=== PATIENT | female | born 1950 | race Caucasian/White ===

== ENCOUNTER 2016-11-25 10:13 | Emergency (ER) | payer OTHER ==
[~2016-11-25] VITALS: Ht 157.5 cm; Wt 81.6 kg
--- NOTE | 2016-11-25 10:16 | NUR ---
PT BIB [facility] S/P GLF C/O RIB/BREAST PAIN, L SHOULDER, AND L ARM PAIN 5/10. NO VISIBLE DEFORMITIES. DISTAL CMS INTACT. RESP EVEN UNLABORED. SKIN WARM NONDIAPHORETIC. NAD NOTED. IN ER BED 05.
--- NOTE | 2016-11-25 11:05 | NUR ---
[facility], SPOKE WITH CRISTY, GAVE HIM PT INFO; INFORMED ME IF PT NEEDS TO BE TRANSFERRED TO GIVE HIM A CALL BACK
--- NOTE | 2016-11-25 12:09 | NUR ---
PT TRANSPORTED TO CT IN STABLE CONDITION
--- NOTE | 2016-11-25 13:41 | NUR ---
Rayshawn isaacs in [id number] - 11/25/16 at 1343 by [facility] CALLED [employer] FOR TELE BED
--- NOTE | 2016-11-25 13:43 | NUR ---
RESTING QUIETLY, NAD NOTED. MD AT BEDSIDE FOR UPDATE. PER MD, PLACE PT ON HEAD PACKAGER AND 2L VIA NC FOR SUPPORT.
--- NOTE | 2016-11-25 13:51 | NUR ---
CALLED [facility], AWAITING CALL BACK FROM [facility]
[2016-11-25 13:56] LABS: BASOPHILS # (AUTO) 0.5 /CMM (0.0-0.2); BASOPHILS % (AUTO) 2.2 % (0.0-2.0); EOSINOPHILS % (AUTO) 0.1 % (0.0-6.0); HEMATOCRIT 39 % (33-45); HEMOGLOBIN 12.7 g/dL (11.5-14.8); LYMPHOCYTES # (AUTO) 0.9 /CMM (0.8-4.8); LYMPHOCYTES % (AUTO) 4.3 % (20.0-44.0); MEAN CORPUSCULAR HEMOGLOBIN 27 PG (26.0-33.0); MEAN CORPUSCULAR HGB CONC 33 g/dl (31.0-36.0); MEAN CORPUSCULAR VOLUME 82 fL (82-100); MONOCYTES # (AUTO) 1.1 /CMM (0.1-1.30); MONOCYTES % (AUTO) 5.1 % (2.0-12.0); NEUTROPHILS # (AUTO) 18.1 /CMM (1.8-8.9); NEUTROPHILS % (AUTO) 88.3 % (43.0-81.0); PLATELET COUNT (AUTO) 247 /CMM (150-450); RDW COEFFICIENT OF VARIATION 14.5 (11.5-15.0); RED BLOOD CELL COUNT(AUTO) 4.76 MIL/uL (4.0-5.2); WHITE BLOOD COUNT (AUTO) 20.6 K/uL (4.3-11.0)
[2016-11-25 14:10] LABS: CALCIUM, SERUM 9.2 mg/dL (8.5-10.1); CARBON DIOXIDE 25 mmol/L (21-32); CHLORIDE 104 mmol/L (98-107); CREATININE 1.1 mg/dL (0.6-1.3); GLUCOSE 152 mg/dL (74-106); POTASSIUM 4.7 mmol/L (3.5-5.1); SODIUM SERUM 139 mmol/L (136-145); UREA NITROGEN, BLOOD 27 mg/dL (7-18)
[2016-11-25 14:13] LABS: INR 0.98 (0.87-1.13); PROTHROMBIN TIME 10.2 SECS (9.5-12.7)
[2016-11-25 14:15] LABS: ALANINE AMINOTRANSFERASE 28 U/L (12-78); ALBUMIN 3.7 g/dL (3.4-5.0); ALKALINE PHOSPHATASE 92 U/L (46-116); ASPARTATE AMINOTRANSFERASE 37 U/L (15-37); BILIRUBIN,TOTAL 0.4 mg/dL (0.2-1.0); TOTAL PROTEIN, SERUM 7.7 g/dL (6.4-8.2)
[2016-11-25 14:17] LABS: TROPONIN I < 0.017 ng/mL (0.00-0.056)
--- NOTE | 2016-11-25 14:21 | NUR ---
REPORTS ADEQUATE PAIN RELIEF WITH MEDICATION ORDERED
[2016-11-25 15:19] LABS: BAND % (MANUAL) 2 % (0.0-5.0); LYMPHOCYTES % (MANUAL) 2 % (16-48); MONOCYTES % (MANUAL) 2 % (0-11.0); NEUTROPHILS % (MANUAL) 94 (42-76)
--- NOTE | 2016-11-25 16:07 | NUR ---
PT REPORTS NEEDING TO GO TO THE BATHROOM. OFFERED BEDSIDE COMMODE AND BEDPAN. PT REFUSES TO LIE DOWN FLAT SO HER SHORTS CAN BE REMOVED AND DOES NOT CONSENT TO CUTTING OFF HER SHORTS. PT STATES "I'LL JUST PEE IN MY PANTS. I CAN'T GET ON THE BEDPAN".
--- NOTE | 2016-11-25 16:34 | NUR ---
PT ACCEPTED TO [facility] ER BY DR. RUFFIN, NUMBER FOR REPORT IS [phone], [facility] SHOULD ARRIVE WITHIN THE HOUR
[2016-11-25 16:57] VITALS: BP 111/77
--- NOTE | 2016-11-25 17:11 | NUR ---
[facility] ER REPORT GIVEN TO ER SOCIAL MEDIA DESIGNER TELMA, DEFENSIVE LINE COACH TIME W/IN AN HR.
--- NOTE | 2016-11-25 17:48 | NUR ---
PT TRANSPORTED TO [facility] IN STABLE CONDITION VIA [id number]
== END 2016-11-25 17:53 | disposition short-term general hospital (02) ==
LOC: ER 10:15
DX: S22.42XA Multiple fractures of ribs, left side, initial encounter for closed fracture (principal); S42.252A Displaced fracture of greater tuberosity of left humerus, initial encounter for closed fracture; D72.829 Elevated white blood cell count, unspecified; I70.0 Atherosclerosis of aorta; Z94.0 Kidney transplant status; Z88.8 Allergy status to other drugs, medicaments and biological substances; W01.0XXA Fall on same level from slipping, tripping and stumbling without subsequent striking against object, initial encounter; Y93.89 Activity, other specified; Y92.89 Other specified places as the place of occurrence of the external cause; Y99.9 Unspecified external cause status
CPT/HCPCS: 36415; 71010; 71250; 73030; 80048; 80076; 84484; 85025; 85730; 93005; 96372; 96374; 99291; 96375; A4606; J2270 ×4; Q0162; Z7610